=== PATIENT | female | born 1945 | race Asian ===

== ENCOUNTER 2025-06-17 01:07 | Emergency (ER) | payer MEDICARE ==
[~2025-06-17] VITALS: Ht 160 cm; Wt 68.2 kg
[2025-06-17 03:11] LABS: PLATELET COUNT (AUTO) 203 K/uL (150-450); RED BLOOD CELL COUNT(AUTO) 3.44 MIL/uL (4.00-5.20); RED CELL DISTRIBUTION WIDTH 13.5 % (11.5-14.5); WHITE BLOOD COUNT (AUTO) 5.1 K/uL (4.5-11.0)
[2025-06-17] MEDS: LOPERAMIDE HCL 2 MG CAPSULE PO ONE (03:15)
[2025-06-17] MEDS: SIMETHICONE 80 MG CHEWABLE TABLET CHEW ONE (03:15)
[2025-06-17] MEDS: DICYCLOMINE HCL 10 MG CAPSULE PO ONE (03:15)
[2025-06-17 03:20] LABS: APPEARANCE,URINE CLEAR (CLEAR); GLUCOSE, URINE (UA) NEGATIVE (NEGATIVE); LEUKOCYTE ESTERASE ,URINE NEGATIVE (NEGATIVE); NITRATE,URINE NEGATIVE (NEGATIVE); OCCULT BLOOD,URINE NEGATIVE (NEGATIVE); SPECIFIC GRAVITIY, URINE 1.003 (1.003-1.030)
[2025-06-17 03:20] LABS: CALCIUM, TOTAL 8.9 mg/dL (8.8-10.5); CREATININE 0.68 mg/dL (0.60-1.30); GLOMERULAR FILTR. RATE CALC > 60 mL/min (>60); GLUCOSE,RANDOM 104 mg/dL (70-110); SODIUM SERUM 142 mmol/L (136-145); UREA NITROGEN, BLOOD 20 mg/dL (7-18)
[2025-06-17 03:26] LABS: ASPARTATE AMINOTRANSFERASE 27.0 U/L (15-37); TOTAL PROTEIN, SERUM 7.7 g/dL (6.4-8.2)
[2025-06-17 03:31] LABS: TROPONIN I-HIGH SENSITIVITY 18 ng/L (<51)
[2025-06-17 05:00] VITALS: BP 134/72; PULSE 71; RESP 16; TEMP 97.3; O2SAT 98
== END 2025-06-17 09:00 | disposition home or self-care (01) ==
LOC: EMS 01:10
DX: K52.9 Noninfective gastroenteritis and colitis, unspecified (principal); R10.24 Suprapubic pain; R11.0 Nausea; F03.90 Unspecified dementia, unspecified severity, without behavioral disturbance, psychotic disturbance, mood disturbance, and anxiety; Z88.2 Allergy status to sulfonamides; Z88.0 Allergy status to penicillin; Z88.1 Allergy status to other antibiotic agents
CPT/HCPCS: 80048; 80076; 81003; 83690; 84484; 85025; 93005; 99283